=== PATIENT | female | born 1945 | race Caucasian/White ===

== ENCOUNTER 2016-11-27 19:47 | Emergency (ER) | payer OTHER, MEDICARE ==
[2016-11-27 20:09] LABS: BASOPHIL % 0.8 % (0.0-0.4); Eosinophil % 2.1 % (0.00-5.0); Granulocytes % 60.9 % (36.0-66.0); Mean Cell Volume 91.5 fl (78-100); Monocytes % 8.2 % (0.0-12.0); Platelet Count 300 K/mm3 (150-450); Red Blood Count 4.12 M/mm3 (4.1-5.4); Red Cell Distribution Width 12.6 % (11.5-14.0); White Blood Count 7.1 K/mm3 (4.0-10.5)
[2016-11-27 20:10] VITALS: O2SAT 98
[2016-11-27 20:10] LABS: Mean Corpuscular Hemoglobin 28.8 pg (26-32)
--- NOTE | 2016-11-27 20:28 | ERPHSYRPT ---
- History of Present Illness Time Seen by Provider: 11/27/16 20:00 Source: patient Exam Limitations: no limitations Patient Subjective Stated Complaint: pt knocked on back door maribell with a nosebleed -states she was eating at [employer] when she started bleeding- she has had 4 nosebleeds in the recent past but they stopped on their own -she stopped aspirin 3 days ago Triage Nursing Assessment: pt is awake and alert and and able to answer questions -very anxious Physician History: 71 y/o female with history of CVA, CAD and HTN comes to the ER after having a right sided nose bleed that started this evening while eating in a restaurant. Upon arrival pt had pressure applied for 10 mins which stopped the bleeding. Pt stopped ASA 3 days ago. Pt denies any other bleeding. Timing/Duration: abrupt onset Severity: moderate ENT Location: nose Prearrival Treatment: squeezing nostrils Modifying Factors: Improves With: nothing Associated Symptoms: denies symptoms Allergies/Adverse Reactions: Iodinated Contrast- Oral and IV Dye [Iodinated Contrast Media - IV Dye] Allergy (Verified 11/14/12 00:01) iodine Allergy (Verified 11/14/12 00:02) codeine Adverse Reaction (Verified 11/27/16 20:25) SEAFOOD Allergy (Uncoded 11/14/12 04:12) Home Medications: Aspirin [Baby Aspirin] 81 mg PO DAILY 11/14/12 [History] Atenolol 50 mg PO DAILY 11/14/12 [History] Atorvastatin Calcium [Lipitor] 1 tab DAILY 11/14/12 [History] Escitalopram Oxalate 10 mg [Lexapro 10 MG] 20 mg PO DAILY 11/14/12 [History] Esomeprazole Magnesium [Nexium] 40 mg PO DAILY 11/14/12 [History] Ezetimibe 10 mg [Zetia 10 MG] 10 mg PO EVENING MEAL 11/14/12 [History] Ramipril 5 mg [Altace 5 MG] 5 mg PO DAILY 11/14/12 [History] Sitagliptin Phos/Metformin HCl [Janumet 50-1,000 mg Tablet] 0 each PO BID [History] Hx Tetanus, Diphtheria Vaccination/Date Given: No Hx Influenza Vaccination/Date Given: No Hx Pneumococcal Vaccination/Date Given: No - Review of Systems Constitutional: No Fever, No Chills Eyes: No Symptoms Ears, Nose, & Throat: No Symptoms, Epistaxis Respiratory: No Cough, No Dyspnea Cardiac: No Chest Pain, No Edema, No Syncope Abdominal/Gastrointestinal: No Abdominal Pain, No Nausea, No Vomiting, No Diarrhea Genitourinary Symptoms: No Dysuria Musculoskeletal: No Back Pain, No Neck Pain Skin: No Rash Neurological: No Dizziness, No Focal Weakness, No Sensory Changes Psychological: No Symptoms Endocrine: No Symptoms All Other Systems: Reviewed and Negative - Past Medical History Neurological History: No Pertinent History, TIA ENT History: No Pertinent History Cardiac History: Coronary Artery Disease, High Cholesterol, Hypertension, Myocardial Infarction ([place]) Respiratory History: Pneumonia Endocrine Medical History: Diabetes Type II GI Medical History: GERD, Polyps History: Other Psycho-Social History: Anxiety Female Reproductive Disorders: Uterine Cancer Other Medical History: endometrial cancer polyps on colon precancer - Past Surgical History Past Surgical History: Yes Cardiac: Cardiac Stent Respiratory: No Pertinent History Gastrointestinal: No Pertinent History Musculoskeletal: No Pertinent History Female Surgical History: Section, Hysterectomy - Social History Smoking Status: Never smoker Exposure to second hand smoke: No Drug Use: none Patient Lives Alone: Yes - Female History Hx Last Menstrual Period: no - Nursing Vital Signs Nursing Vital Signs: Initial Vital Signs Pulse Rate 88 11/27/16 20:08 Respiratory Rate 20 11/27/16 20:08 Blood Pressure 130/80 11/27/16 20:08 O2 Sat by Pulse Oximetry 98 11/27/16 20:08 Pain Scale Pain Intensity 0 - Physical Exam General Appearance: no apparent distress, alert Eye Exam: bilateral eye: PERRL, EOMI Nasal Exam: normal inspection, dried blood, No active bleeding Throat Exam: pharynx normal, moist mucus membranes, No tonsillar exudate Neck Exam: supple Cardiovascular/Respiratory Exam: normal breath sounds, regular rate/rhythm Abdominal Exam: non-tender, soft Neurologic Exam: alert, oriented x 3, sensation nml, No motor deficits Skin Exam: normal color, warm, dry SpO2: 98 Oxygen Delivery: Room Air - Course Nursing assessment & vital signs reviewed: Yes Ordered Tests: Active Orders 24 hr Category Date Time Status CBC W DIFF Stat Lab 11/27/16 20:00 Completed PT INR [PROTIME WITH INR] Stat Lab 11/27/16 20:00 Completed PTT Stat Lab 11/27/16 20:00 Completed Lab/Rad Data: Laboratory Result Diagrams 11/27/16 20:00 Laboratory Results 11/27/16 11/27/16 Range/Units 20:00 20:00 WBC 7.1 (4.0-10.5) K/mm3 RBC 4.12 (4.1-5.4) M/mm3 Hgb 11.9 L (12.0-16.0) gm/dl Hct 37.7 (35-47) % MCV 91.5 (78-100) fl MCH 28.8 (26-32) pg MCHC 31.6 L (32-36) g/dl RDW 12.6 (11.5-14.0) % Plt Count 300 (150-450) K/mm3 MPV 10.0 H (6-9.5) fl Gran % 60.9 (36.0-66.0) % Lymphocytes % 28.0 (24.0-44.0) % Monocytes % 8.2 (0.0-12.0) % Eosinophils % 2.1 (0.00-5.0) % Basophils % 0.8 (0.0-0.4) % Basophils # 0.06 (0-0.4) INR 0.96 (0.8-3.0) APTT 26.3 (25.3-37.0) SECONDS - Progress Progress: improved Progress Note: 11/27/16 20:30 The patient has not had any nose bleeding since being in the ER. The CBC and coags are within normal limits. Pt will be referred to ENT. I have instructed to restart the ASA. - Departure Time of Disposition: 20:41 Departure Disposition: Home Clinical Impression: Nosebleed Condition: Stable Critical Care Time: No Referrals: BERNARDO HIGUERA [Primary Care Provider] - Instructions: Nosebleed Additional Instructions: Follow up with your ENT doctor in the next few days. Resume taking ASA once daily.
[2016-11-27 20:29] LABS: INR 0.96 (0.8-3.0); PROTIME 10.9 SECONDS (9.95-12.35)
[2016-11-27 20:32] LABS: PTT 26.3 SECONDS (25.3-37.0)
[2016-11-27 20:52] VITALS: BP 129/76; PULSE 90
== END 2016-11-27 21:08 | disposition home or self-care (01) ==
LOC: ED 19:47
DX: R04.0 Epistaxis (principal); Z86.73 Personal history of transient ischemic attack (TIA), and cerebral infarction without residual deficits; I25.10 Atherosclerotic heart disease of native coronary artery without angina pectoris; I10 Essential (primary) hypertension; Z79.899 Other long term (current) drug therapy; Z79.84 Long term (current) use of oral hypoglycemic drugs
CPT/HCPCS: 36415; 82962; 85025; 85610; 85730; 99283

== ENCOUNTER 2021-11-15 20:16 | Emergency (ER) | payer MEDICARE, OTHER ==
--- NOTE | 2021-11-15 20:20 | ERPHSYRPT ---
- History of Present Illness Time Seen by Provider: 11/15/21 20:19 Source: patient, family Exam Limitations: no limitations Physician History: This is 76-year-old white female who is right-handed and presents with a "splinter" of glass that is in her right hand. It occurred when she broke a plate at home. Palmar aspect. Patient's tetanus status is up-to-date. Patient is diabetic. Occurred: just prior to arrival Severity of Pain-Max: mild Severity of Pain-Current: mild Extremities Pain Location: hand: right (Palmar aspect) Modifying Factors: Improves With: nothing Associated Symptoms: none Allergies/Adverse Reactions: Iodinated Contrast Media [Iodinated Contrast Media - IV Dye] Allergy (Verified 11/14/12 00:01) iodine Allergy (Verified 11/14/12 00:02) codeine Adverse Reaction (Verified 11/27/16 20:25) SEAFOOD Allergy (Uncoded 11/14/12 04:12) Home Medications: Aspirin [Baby Aspirin] 81 mg PO DAILY 11/14/12 [History] Atorvastatin Calcium [Lipitor] 1 tab DAILY 11/14/12 [History] Escitalopram Oxalate [Lexapro 10 MG] 20 mg PO DAILY 11/14/12 [History] Esomeprazole Magnesium [Nexium] 40 mg PO DAILY 11/14/12 [History] Ezetimibe 10 mg [Zetia 10 MG] 10 mg PO EVENING MEAL 11/14/12 [History] Ramipril 5 mg [Altace 5 MG] 5 mg PO DAILY 11/14/12 [History] Sitagliptin Phos/Metformin HCl [Janumet 50-1,000 mg Tablet] 0 each PO BID 11/14/12 [History] atenoloL [Atenolol] 50 mg PO DAILY 11/14/12 [History] Insulin Aspart [NovoLOG Insulin] 0 units PRN 11/27/16 [History] Insulin Detemir [Levemir] 70 mg HS 11/27/16 [History] Hx Tetanus, Diphtheria Vaccination/Date Given: No Hx Influenza Vaccination/Date Given: No Hx Pneumococcal Vaccination/Date Given: No Travel Risk - International Travel Have you traveled outside of the country in past 3 weeks: No - Coronavirus Screening Are you exhibiting any of the following symptoms?: No Close contact with a COVID-19 positive Pt in past 14-21 Days: No - Review of Systems Constitutional: No Symptoms Eyes: No Symptoms Ears, Nose, & Throat: No Symptoms Respiratory: No Symptoms Cardiac: No Symptoms Abdominal/Gastrointestinal: No Symptoms Genitourinary Symptoms: No Symptoms Musculoskeletal: No Symptoms Skin: Other (Tenderness of skin right hand hypothenar eminence? Splinter) Neurological: No Symptoms Psychological: No Symptoms Endocrine: No Symptoms Hematologic/Lymphatic: No Symptoms Immunological/Allergic: No Symptoms All Other Systems: Reviewed and Negative - Past Medical History Neurological History: No Pertinent History, TIA ENT History: No Pertinent History Cardiac History: Coronary Artery Disease, High Cholesterol, Hypertension, Myocardial Infarction ([place]) Respiratory History: Pneumonia Endocrine Medical History: Diabetes Type II GI Medical History: GERD, Polyps History: Other Psycho-Social History: Anxiety Female Reproductive Disorders: Uterine Cancer Other Medical History: endometrial cancer polyps on colon precancer - Past Surgical History Past Surgical History: Yes Cardiac: Cardiac Stent Respiratory: No Pertinent History Gastrointestinal: No Pertinent History Musculoskeletal: No Pertinent History Female Surgical History: Section, Hysterectomy - Social History Smoking Status: Never smoker Exposure to second hand smoke: No Drug Use: none Patient Lives Alone: Yes - Physical Exam General Appearance: no apparent distress, alert, obese Eyes, Ears, Nose, Throat Exam: normal ENT inspection, moist mucous membranes Neck Exam: normal inspection, non-tender, supple, full range of motion Cardiovascular/Respiratory Exam: chest non-tender, no respiratory distress Abdominal Exam: non-tender Back Exam: normal inspection, normal range of motion, No CVA tenderness, No vertebral tenderness Shoulder Exam: normal inspection, non-tender, no evidence of injury, normal ROM Elbow/Forearm Exam: normal inspection, non-tender, no evidence of injury, normal ROM Wrist Exam: normal inspection, non-tender, no evidence of injury, normal ROM Hand Exam: soft tissue tenderness (Mild localized hypothenar eminence right hand. There is a questionable splinter present. No active bleeding. No pus. No abscess. No redness or cellulitis.) Neuro/Tendon Exam: normal sensation, normal motor functions, normal tendon functions, responds to pain, no evidence tendon injury Mental Status Exam: alert, oriented x 3, cooperative Skin Exam: normal color, warm, dry, other (See above) SpO2 Interpretation: normal O2 Delivery: Room Air Procedures - Additional Procedures Progress: Procedure note: Timeout was performed at 2030. Using forceps we were able to remove what appears to be splintering of a plate in the superficial skin right hand, hyperthenar eminence. After removal, the patient states she no longer has pain in that area. We obviously removed a punctate foreign body. Patient tolerated procedure well. - Course Nursing assessment & vital signs reviewed: Yes - Progress Progress: improved Counseled pt/family regarding: diagnosis, need for follow-up - Departure Departure Disposition: Home Clinical Impression: Splinter in skin Condition: Stable Critical Care Time: No Referrals: BERNARDO HIGUERA [Primary Care Provider] - Follow up/PCP as directed Additional Instructions: Keep the site clean with soap and water daily. Do not use any ointments lotions or creams. If you notice redness to the area then you may fill the antibiotics as prescribed. If the redness increases, return to emergency department for reevaluation. Prescriptions: Cephalexin Mh 500 mg [Keflex 500 mg] 500 mg PO TID #15 cap
[2021-11-15 20:38] VITALS: BP 140/85
[2021-11-15 20:53] VITALS: PULSE 84; O2SAT 98
== END 2021-11-15 20:52 | disposition home or self-care (01) ==
LOC: ED 20:16
DX: S61.441A Puncture wound with foreign body of right hand, initial encounter (principal); W25.XXXA Contact with sharp glass, initial encounter; W45.8XXA Other foreign body or object entering through skin, initial encounter; E11.9 Type 2 diabetes mellitus without complications; E78.5 Hyperlipidemia, unspecified; I10 Essential (primary) hypertension; Z79.84 Long term (current) use of oral hypoglycemic drugs; Z79.4 Long term (current) use of insulin; Z79.899 Other long term (current) drug therapy
CPT/HCPCS: 10120; 99281

== ENCOUNTER 2023-03-11 18:29 | Emergency (ER) | payer MEDICARE, OTHER ==
[2023-03-11 18:58] VITALS: TEMP 97
--- NOTE | 2023-03-11 19:55 | ERPHSYRPT ---
- History of Present Illness Time Seen by Provider: 03/11/23 19:15 Source: patient Exam Limitations: no limitations Patient Subjective Stated Complaint: Mouth/jaw/neck pain Triage Nursing Assessment: Patient brought into ED per w/c and transferred self to bed. Patient A+O X3. Patient's skin pink, warm and dry. Patient states 2 days ago her tongue started feeling numb. Patient states today she is having pain in mouth and clifford jaw and front of neck. Patient states that area is swollen. Patient complains of pain 11/13. Physician History: Patient is 77-year-old female presents to our ED for evaluation of tongue numbness, mild pain bilateral jaw pain and pain to the front of her neck. Symptoms have been progressively worse. Pain described as an ache that is localized. No radiation. Patient denies chest pain. Mild nausea. No trauma. No fever. Symptoms are constant. Symptoms are moderate in intensity. Pain w orse with palpation to the anterior lateral neck. Pain improved with rest. Patient voices no other complaints or concerns at this time. Patient took Aleve prior to arrival Portions of this note were created with voice recognition technology. There may be grammatical, spelling, punctuation or sound alike errors Timing/Duration: day(s) (2 days) Severity: moderate Modifying Factors: Improves With: other (Palpation) Associated Symptoms: denies symptoms Allergies/Adverse Reactions: cephalexin [From Keflex] Allergy (Verified 03/11/23 18:49) Iodinated Contrast Media [Iodinated Contrast Media - IV Dye] Allergy (Verified 11/15/21 20:39) iodine Allergy (Verified 11/15/21 20:39) codeine Adverse Reaction (Verified 11/15/21 20:39) SEAFOOD Allergy (Uncoded 11/15/21 20:39) Home Medications: Aspirin [Baby Aspirin] 81 mg PO DAILY 11/14/12 [History] Atorvastatin Calcium [Lipitor] 1 tab DAILY 11/14/12 [History] Escitalopram Oxalate [Lexapro 10 MG] 20 mg PO DAILY 11/14/12 [History] Esomeprazole Magnesium [Nexium] 40 mg PO DAILY 11/14/12 [History] Ezetimibe 10 mg [Zetia 10 MG] 10 mg PO EVENING MEAL 11/14/12 [History] Ramipril 5 mg [Altace 5 MG] 5 mg PO DAILY 11/14/12 [History] Sitagliptin Phos/Metformin HCl [Janumet 50-1,000 mg Tablet] 0 each PO BID 11/14/12 [History] atenoloL [Atenolol] 50 mg PO DAILY 11/14/12 [History] Insulin Aspart [NovoLOG Insulin] 0 units PRN 11/27/16 [History] Insulin Detemir [Levemir] 70 mg HS 11/27/16 [History] Hx Tetanus, Diphtheria Vaccination/Date Given: No Hx Influenza Vaccination/Date Given: No Hx Pneumococcal Vaccination/Date Given: No Immunizations Up to Date: Yes Travel Risk - International Travel Have you traveled outside of the country in past 3 weeks: No - Coronavirus Screening Are you exhibiting any of the following symptoms?: No Close contact with a COVID-19 positive Pt in past 14-21 Days: No - Vaccine Status Have you recieved a Covid-19 vaccination: Yes Evaluation Analyst: Unknown - Vaccination Dates Dates if Unknown: na - Review of Systems Constitutional: No Symptoms, No Fever, No Chills Eyes: No Symptoms Ears, Nose, & Throat: No Symptoms Respiratory: No Symptoms, No Cough, No Dyspnea Cardiac: No Symptoms, No Chest Pain, No Edema, No Syncope Abdominal/Gastrointestinal: No Symptoms, No Abdominal Pain, No Nausea, No Vomiting, No Diarrhea Genitourinary Symptoms: No Symptoms, No Dysuria Musculoskeletal: No Symptoms, No Back Pain, No Neck Pain Skin: No Symptoms, No Rash Neurological: No Symptoms, No Dizziness, No Focal Weakness, No Sensory Changes Psychological: No Symptoms Endocrine: No Symptoms Hematologic/Lymphatic: No Symptoms Immunological/Allergic: No Symptoms All Other Systems: Reviewed and Negative - Past Medical History Pertinent Past Medical History: Yes Neurological History: No Pertinent History, TIA ENT History: No Pertinent History Cardiac History: Coronary Artery Disease, High Cholesterol, Hypertension, Myocardial Infarction (AR) Respiratory History: Pneumonia Endocrine Medical History: Diabetes Type II GI Medical History: GERD, Polyps History: Other Psycho-Social History: Anxiety Female Reproductive Disorders: Uterine Cancer Other Medical History: endometrial cancer polyps on colon precancer - Past Surgical History Past Surgical History: Yes Cardiac: Cardiac Stent Respiratory: No Pertinent History Gastrointestinal: No Pertinent History Musculoskeletal: No Pertinent History Female Surgical History: Section, Hysterectomy - Social History Smoking Status: Never smoker Exposure to second hand smoke: No Drug Use: none Patient Lives Alone: Yes - Nursing Vital Signs Nursing Vital Signs: Initial Vital Signs Temperature 97.0 F 03/11/23 18:51 Pulse Rate 79 03/11/23 18:51 Respiratory Rate 18 03/11/23 18:51 Blood Pressure 180/82 03/11/23 18:51 O2 Sat by Pulse Oximetry 98 03/11/23 18:51 Pain Scale Pain Intensity 1 - Physical Exam General Appearance: no apparent distress, alert Eye Exam: PERRL/EOMI, eyes nml inspection Ears, Nose, Throat Exam: normal ENT inspection, TMs normal, pharynx normal, moist mucous membranes Neck Exam: normal inspection, non-tender, supple, full range of motion, other (Palpable tender mass at the angle of the jaw on the right) Respiratory Exam: normal breath sounds, lungs clear, airway intact, No respiratory distress Cardiovascular Exam: regular rate/rhythm, normal heart sounds, normal peripheral pulses Gastrointestinal/Abdomen Exam: soft, normal bowel sounds, No tenderness, No mass Back Exam: normal inspection, normal range of motion, No CVA tenderness, No vertebral tenderness Extremity Exam: normal inspection, normal range of motion, pelvis stable Neurologic Exam: alert, oriented x 3, cooperative, normal mood/affect, nml cerebellar function, nml station & gait, sensation nml, No motor deficits Skin Exam: normal color, warm, dry, No rash Lymphatic Exam: No adenopathy SpO2 Interpretation: normal SpO2: 98 O2 Delivery: Room Air - Course Nursing assessment & vital signs reviewed: Yes EKG Interpreted by Me: RATE (86), Sinus Rhythm, NORMAL AXIS, NORMAL INTERVALS - CT Exams Soft Tissue Neck CT Interpretation: Tele-radiologist Report (No comps. 3 to 4 mm right submandibular duct stone with right submandibular sial adenitis) Ordered Tests: Active Orders 24 hr Category Date Time Status Rocket Motor Mechanic STAT Care 03/11/23 19:20 Active EKG-ER Only STAT Care 03/11/23 19:20 Active Pulse Oximetry (ED) STAT Care 03/11/23 19:20 Active NECK WO CONTRAST [CT] Stat Exams 03/11/23 20:39 Taken CBC W DIFF Stat Lab 03/11/23 20:00 Completed CMP Stat Lab 03/11/23 20:00 Completed D-DIMER QUANTITATIVE Stat Lab 03/11/23 20:00 Completed TROPONIN Q4H Lab 03/11/23 20:00 Completed TROPONIN Q4H Lab 03/11/23 23:05 Completed TROPONIN Q4H Lab 03/12/23 03:30 Ordered Medication Summary Discontinued Medications Generic Name Dose Route Start Last Admin Trade Name Pricila PRN Reason Stop Dose Admin Hydrocodone Bitart/Acetaminophen 1 tab 03/11/23 23:02 03/11/23 23:12 Hydrocodone/Apap 5/325 1 Tab Tablet PO 03/11/23 23:03 1 tab STAT ONE Administration Hydrocodone Bitart/Acetaminophen Confirm 03/11/23 23:11 Hydrocodone/Apap 5/325 1 Tab Tablet Administered 03/11/23 23:12 Dose 1 tab .ROUTE .STK-MED ONE Morphine Sulfate Confirm 03/11/23 21:42 Morphine Sulfate 2 Mg/Ml Inj Administered 03/11/23 21:43 Dose 2 mg .ROUTE .STK-MED ONE Morphine Sulfate 2 mg 03/11/23 21:47 03/11/23 21:49 Morphine Sulfate 2 Mg/Ml Inj IM 03/11/23 21:48 2 mg STAT ONE Administration Morphine Sulfate 4 mg 03/11/23 22:58 03/11/23 23:12 Morphine Sulfate 4 Mg/Ml Injection IM 03/11/23 22:59 4 mg STAT ONE Administration Morphine Sulfate Confirm 03/11/23 23:02 Morphine Sulfate 4 Mg/Ml Injection Administered 03/11/23 23:03 Dose 4 mg .ROUTE .STK-MED ONE Lab/Rad Data: Laboratory Result Diagrams 03/11/23 20:00 03/11/23 20:00 Laboratory Results 03/11/23 03/11/23 03/11/23 Range/Units 23:05 20:00 20:00 WBC (4.0-10.5) x10^3/uL RBC (4.1-5.4) x10^6/uL Hgb (12.0-16.0) g/dL Hct (35-47) % MCV (78-100) fL MCH (26-32) pg MCHC (32-36) g/dL RDW (11.5-14.0) % Plt Count (150-450) x10^3/uL MPV (7.5-11.0) fL Gran % (36.0-66.0) % Immature Gran % (Auto) (0.00-0.4) % Nucleat RBC Rel Count (0.00-0.1) % Eos # (Auto) (0-0.5) x10^3/uL Immature Gran # (Auto) (0.00-0.03) x10^3u/L Absolute Lymphs (auto) (1.0-4.6) x10^3/uL Absolute Monos (auto) (0.0-1.3) x10^3/uL Absolute Nucleated RBC (0.00-0.01) x10^3u/L Lymphocytes % (24.0-44.0) % Monocytes % (0.0-12.0) % Eosinophils % (0.00-5.0) % Basophils % (0.0-0.4) % Absolute Granulocytes (1.4-6.9) x10^3/uL Basophils # (0-0.4) x10^3/uL D-Dimer 0.47 (0.0-0.50) mg/L Sodium (137-145) mmol/L Potassium (3.5-5.1) mmol/L Chloride (98-107) mmol/L Carbon Dioxide (22-30) mmol/L Anion Gap (5-15) MEQ/L BUN (7-17) mg/dL Creatinine (0.52-1.04) mg/dL Estimated GFR ML/MIN Glucose (74-106) mg/dL Calcium (8.4-10.2) mg/dL Total Bilirubin (0.2-1.3) mg/dL AST (14-36) U/L ALT (0-35) U/L Alkaline Phosphatase (38-126) U/L Troponin I < 0.012 < 0.012 (0.000-0.034) ng/mL Serum Total Protein (6.3-8.2) g/dL Albumin (3.5-5.0) g/dL Influenza Type A Ag (NEGATIVE) Influenza Type B Ag (NEGATIVE) RSV (PCR) (NEGATIVE) SARS-CoV-2 (PCR) (NEGATIVE) Group A Strep Antibody (NEGATIVE) 03/11/23 03/11/23 03/11/23 Range/Units 20:00 20:00 19:50 WBC 7.9 (4.0-10.5) x10^3/uL RBC 4.21 (4.1-5.4) x10^6/uL Hgb 11.9 L (12.0-16.0) g/dL Hct 38.5 (35-47) % MCV 91.4 (78-100) fL MCH 28.3 (26-32) pg MCHC 30.9 L (32-36) g/dL RDW 12.4 (11.5-14.0) % Plt Count 252 (150-450) x10^3/uL MPV 9.7 (7.5-11.0) fL Gran % 72.3 H (36.0-66.0) % Immature Gran % (Auto) 0.4 (0.00-0.4) % Nucleat RBC Rel Count 0.0 (0.00-0.1) % Eos # (Auto) 0.07 (0-0.5) x10^3/uL Immature Gran # (Auto) 0.03 (0.00-0.03) x10^3u/L Absolute Lymphs (auto) 1.35 (1.0-4.6) x10^3/uL Absolute Monos (auto) 0.69 (0.0-1.3) x10^3/uL Absolute Nucleated RBC 0.00 (0.00-0.01) x10^3u/L Lymphocytes % 17.1 L (24.0-44.0) % Monocytes % 8.7 (0.0-12.0) % Eosinophils % 0.9 (0.00-5.0) % Basophils % 0.6 (0.0-0.4) % Absolute Granulocytes 5.72 (1.4-6.9) x10^3/uL Basophils # 0.05 (0-0.4) x10^3/uL D-Dimer (0.0-0.50) mg/L Sodium 138 (137-145) mmol/L Potassium 4.2 (3.5-5.1) mmol/L Chloride 101 (98-107) mmol/L Carbon Dioxide 27 (22-30) mmol/L Anion Gap 14.4 (5-15) MEQ/L BUN 13 (7-17) mg/dL Creatinine 0.70 (0.52-1.04) mg/dL Estimated GFR 90.1 ML/MIN Glucose 233 H (74-106) mg/dL Calcium 9.8 (8.4-10.2) mg/dL Total Bilirubin 0.70 (0.2-1.3) mg/dL AST 24 (14-36) U/L ALT 16 (0-35) U/L Alkaline Phosphatase 91 (38-126) U/L Troponin I (0.000-0.034) ng/mL Serum Total Protein 7.9 (6.3-8.2) g/dL Albumin 4.5 (3.5-5.0) g/dL Influenza Type A Ag (NEGATIVE) Influenza Type B Ag (NEGATIVE) RSV (PCR) (NEGATIVE) SARS-CoV-2 (PCR) (NEGATIVE) Group A Strep Antibody NOT DETECTED (NEGATIVE) 03/11/23 Range/Units 19:50 WBC (4.0-10.5) x10^3/uL RBC (4.1-5.4) x10^6/uL Hgb (12.0-16.0) g/dL Hct (35-47) % MCV (78-100) fL MCH (26-32) pg MCHC (32-36) g/dL RDW (11.5-14.0) % Plt Count (150-450) x10^3/uL MPV (7.5-11.0) fL Gran % (36.0-66.0) % Immature Gran % (Auto) (0.00-0.4) % Nucleat RBC Rel Count (0.00-0.1) % Eos # (Auto) (0-0.5) x10^3/uL Immature Gran # (Auto) (0.00-0.03) x10^3u/L Absolute Lymphs (auto) (1.0-4.6) x10^3/uL Absolute Monos (auto) (0.0-1.3) x10^3/uL Absolute Nucleated RBC (0.00-0.01) x10^3u/L Lymphocytes % (24.0-44.0) % Monocytes % (0.0-12.0) % Eosinophils % (0.00-5.0) % Basophils % (0.0-0.4) % Absolute Granulocytes (1.4-6.9) x10^3/uL Basophils # (0-0.4) x10^3/uL D-Dimer (0.0-0.50) mg/L Sodium (137-145) mmol/L Potassium (3.5-5.1) mmol/L Chloride (98-107) mmol/L Carbon Dioxide (22-30) mmol/L Anion Gap (5-15) MEQ/L BUN (7-17) mg/dL Creatinine (0.52-1.04) mg/dL Estimated GFR ML/MIN Glucose (74-106) mg/dL Calcium (8.4-10.2) mg/dL Total Bilirubin (0.2-1.3) mg/dL AST (14-36) U/L ALT (0-35) U/L Alkaline Phosphatase (38-126) U/L Troponin I (0.000-0.034) ng/mL Serum Total Protein (6.3-8.2) g/dL Albumin (3.5-5.0) g/dL Influenza Type A Ag NEGATIVE (NEGATIVE) Influenza Type B Ag NEGATIVE (NEGATIVE) RSV (PCR) NEGATIVE (NEGATIVE) SARS-CoV-2 (PCR) NEGATIVE (NEGATIVE) Group A Strep Antibody (NEGATIVE) - Progress Progress: improved Progress Note: Patient is a 77-year-old female presents to our ED for evaluation of jaw pain. Physical exam reveals a right submandibular mass. CT reveals a inflamed submandibular gland with a obstructive 3 to 4 mm submandibular duct stone. Remaining laboratory workup negative. Troponin negative x 2. Patient reassessed. Pain improved. Patient advised to follow-up with ENT. Patient states she has an ENT she will follow-up with in [place]. Her space officer is in [place] as well. Vitals have been stable. A prescription for Toradol forwarded to patient's pharmacy. Patient agrees to follow-up with her ENT physician within 48 hours for reevaluation. Portions of this note were created with voice recognition technology. There may be grammatical, spelling, punctuation or sound alike errors Complexity of problem addressed is moderate acute complicated No critical care time Complexity of data reviewed and analyzed is moderate. Test ordered test reviewed. Results analyzed and correlated clinically with history and physical exam. Risk of complication and a risk of morbidity/mortality of patient management is high. Patient received IM morphine for pain control. Vital stable. Time spent to discharge patient is approximately 15 minutes. Plan of care established for shared decision making. No social determinants of health present impede follow-up. Portions of this note were created with voice recognition technology. There may be grammatical, spelling, punctuation or sound alike errors 03/11/23 23:05 Prescription for Volga forwarded to patient's pharmacy. Patient tolerated oral Volga in our ED. 03/11/23 23:54 Counseled pt/family regarding: lab results, diagnosis, need for follow-up, rad results - Departure Departure Disposition: Home Clinical Impression: Submandibular duct stone, Sialadenitis Condition: Stable Critical Care Time: No Referrals: MALINI COATES KNITTED CLOTH EXAMINER [Primary Care Provider] - Follow up/PCP as directed Instructions: Salivary Gland Stones Additional Instructions: Discharge/Care Plan PATRICKPrincessGERMAN Alanis was seen on 03/11/23 in the Emergency Room. The patient was counseled regarding Diagnosis,Lab results, Imaging studies, need for follow up and when to return to the Emergency Room. Prescriptions given: Discharge Note I have spoken with the patient and/or caregivers. I have explained the patient's condition, diagnosis and treatment plan based on the information available to me at this time. I have answered the patient's and/or caregiver's questions and addressed any concerns. The patient and/or caregivers have as good understanding of the patient's diagnosis, condition and treatment plan as can be expected at this point. The vital signs have been stable. The patient's condition is stable and appropriate for discharge from the emergency department. The patient will pursue further outpatient evaluation with the primary care physician or other designated or consulting physician as outlined in the discharge instructions. The patient and/or caregivers are agreeable to this plan of care and follow-up instructions have been explained in detail. The patient and/or caregivers have received these instruction. The patient/and or caregivers are aware that any significant change in condition or worsening of symptoms should prompt an immediate return to this or the closest emergency department or call 911. Prescriptions: Hydrocodone/APAP 5/325 [Volga 5/325 mg] 1 each PO Q6H PRN PRN 3 Days #10 tablet MDD 4 PRN Reason: Pain Ketorolac Trometh 10 mg Tab [TORAdol 10 MG TABLET] 10 mg PO TID 5 Days #15 tablet
[2023-03-11 20:06] LABS: Absolute Neutrophil Ct (ANC) 5.72 x10^3/uL (1.4-6.9); BASOPHIL % 0.6 % (0.0-0.4); Basophil (Absolute #) 0.05 x10^3/uL (0-0.4); Eosinophil % 0.9 % (0.00-5.0); Eosinophil (Absolute #) 0.07 x10^3/uL (0-0.5); Hematocrit 38.5 % (35-47); Hemoglobin 11.9 g/dL (12.0-16.0); IMMATURE GRAN # 0.03 x10^3u/L (0.00-0.03); IMMATURE GRAN % 0.4 % (0.00-0.4); Lymphocyte (Absolute #) 1.35 x10^3/uL (1.0-4.6); Lymphocytes % 17.1 % (24.0-44.0); Mean Cell Volume 91.4 fL (78-100); Mean Corpuscular Hemoglobin 28.3 pg (26-32); Mean Corpuscular Hgb Concent. 30.9 g/dL (32-36); Mean Platelet Volume 9.7 fL (7.5-11.0); Monocyte (Absolute #) 0.69 x10^3/uL (0.0-1.3); Monocytes % 8.7 % (0.0-12.0); Neutrophil % 72.3 % (36.0-66.0); Platelet Count 252 x10^3/uL (150-450); Red Blood Count 4.21 x10^6/uL (4.1-5.4); Red Cell Distribution Width 12.4 % (11.5-14.0); White Blood Count 7.9 x10^3/uL (4.0-10.5)
[2023-03-11 20:29] LABS: ALBUMIN 4.5 g/dL (3.5-5.0); ANION GAP 14.4 MEQ/L (5-15); BILIRUBIN,TOTAL 0.7 mg/dL (0.2-1.3); Calcium 9.8 mg/dL (8.4-10.2); Creatinine 1 0.7 mg/dL (0.52-1.04); EST GLOMERULAR FILTRATION RATE 90.1 ML/MIN; Potassium 4.2 mmol/L (3.5-5.1); Total Protein 7.9 g/dL (6.3-8.2)
[2023-03-11 20:31] LABS: INFLUENZA A NEGATIVE (NEGATIVE); INFLUENZA B NEGATIVE (NEGATIVE); RESPIRATORY SYNCTIAL VIRUS NEGATIVE (NEGATIVE); SARS-CoV-2 Xpert Express NEGATIVE (NEGATIVE)
[2023-03-11] MEDS ORDERED: MORPHINE SULFATE 2 MG INJ ONE (21:42)
[2023-03-11] MEDS ORDERED: MORPHINE SULFATE 2 MG INJ IM ONE (21:47)
[2023-03-11] MEDS ORDERED: MORPHINE SULFATE 4 MG INJ IM ONE (22:58)
[2023-03-11] MEDS ORDERED: MORPHINE SULFATE 4 MG INJ ONE (23:02)
[2023-03-11] MEDS ORDERED: NORCO 5/325 MG PO ONE (23:02)
[2023-03-11] MEDS ORDERED: NORCO 5/325 MG ONE (23:11)
[2023-03-11 23:45] VITALS: BP 146/61; PULSE 74; RESP 18
[2023-03-11 23:55] VITALS: O2SAT 98
--- NOTE | 2023-03-12 08:54 | XRAY ---
Indication: Right neck mass/swelling. Multiple contiguous axial images obtained through the neck without contrast. Sagittal and coronal reformatted images obtained. Cutaneous BB placed over region of interest. Comparison: None Multiple bilateral dental amalgams produces beam artifact. Right neck cutaneous marker is submandibular. Underlying right submandibular gland is enlarged with two 2-3 mm calculi. There is also submandibular gland stranding favoring sialoadenitis. Also a 3-4 mm calculus in right submandibular duct. Remaining left submandibular and both parotid glands are unremarkable. A few subcentimeter cervical nodes bilaterally, none pathologically enlarged. Thyroid gland homogeneous. Moderate bilateral carotid calcifications. Osseous structures intact with osteopenia, mild/moderate multilevel cervicothoracic degenerative changes greatest at C6-C7, and lordotic reversal centered at C6. Lung apices demonstrates chunky mediastinal/right hilar calcified nodes and arteriosclerotic aorta. Base of brain unremarkable. Visualized skull demonstrates incidental hyperostosis frontalis interna. Impression: 1. Right submandibular gland sialoadenitis with 2 micro-calculi. Additional 3-4 mm calculus in distal right submandibular duct. 2. Chronic findings including arteriosclerotic disease, chronic bony findings, and old granulomatous disease.
== END 2023-03-11 23:50 | disposition home or self-care (01) ==
LOC: ED 18:29
DX: K11.5 Sialolithiasis (principal); K11.20 Sialoadenitis, unspecified; R68.84 Jaw pain; M54.2 Cervicalgia; E78.5 Hyperlipidemia, unspecified; I10 Essential (primary) hypertension; E11.9 Type 2 diabetes mellitus without complications; Z79.891 Long term (current) use of opiate analgesic; Z79.84 Long term (current) use of oral hypoglycemic drugs; Z79.4 Long term (current) use of insulin; Z79.899 Other long term (current) drug therapy
CPT/HCPCS: 0241U; 36415; 70490; 80053; 84484; 85025; 85379; 87651; 93005; 93041; 94760; 96372; 99284; J2270; A9270-GY